=== PATIENT | male | born 1975 | race Caucasian/White ===

== ENCOUNTER 2016-09-23 18:12 | Emergency (ER) | payer SELFPAY ==
[~2016-09-23] VITALS: Ht 193 cm; Wt 83.9 kg
[2016-09-23] MEDS ORDERED: IV NORMAL SALINE 1000ML BAG 1,000 ML IV SCH (19:49)
--- NOTE | 2016-09-23 19:57 | PHYS DOC ---
Past Medical History Past Medical History: No Pertinent History Past Surgical History: No Surgical History Alcohol Use: None Drug Use: None Adult General Chief Complaint Chief Complaint: ABDOMINAL PAIN HPI HPI Patient is a 41 year old male who presents with complaint of abdominal pain. Patient states that he has had symptoms for the past 3 days. The patient states that the pain is near his belly button and radiates along his left lower quadrant. The patient states that yesterday he had a black stool but states that today he had a normal stool. Patient has not had any diarrhea and has not had any fevers. Patient has had nausea and vomiting with symptoms. The patient denies any significant past medical history. 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 Patient also states that he drank alcohol prior to symptom onset. Patient denies any sick contacts. Patient rates his pain currently as 10 out of 10. Patient has not taken any medications to help with symptoms. Review of Systems Review of Systems Constitutional: Denies fever or chills [] Eyes: Denies change in visual acuity, redness, or eye pain [] HENT: Denies nasal congestion or sore throat [] Respiratory: Denies cough or shortness of breath [] Cardiovascular: Denies chest pain or edema [] GI: Abdominal pain, nausea, vomiting [] : Denies dysuria or hematuria [] Musculoskeletal: Denies back pain or joint pain [] Integument: Denies rash or skin lesions [] Neurologic: Denies headache, focal weakness or sensory changes [] Endocrine: Denies polyuria or polydipsia [] Current Medications Current Medications Current Medications Medications (Trade) Dose Ordered Sig/[facility] Start Time Stop Time Status Last Admin Dose Admin Famotidine (Pepcid) 20 mg 1X ONCE 09/23/16 20:00 09/23/16 20:01 DC 09/23/16 20:20 20 MG Fentanyl Citrate 50 mcg 50 mcg PRN Q15MIN PRN 09/23/16 20:00 09/24/16 19:59 09/23/16 21:03 50 MCG Lorazepam (Ativan) 1 mg 1X ONCE 09/23/16 20:00 09/23/16 20:01 DC 09/23/16 20:20 1 MG Ondansetron HCl (Zofran) 4 mg 1X ONCE 09/23/16 20:00 09/23/16 20:01 DC 09/23/16 20:20 4 MG Sodium Chloride (Iv Sodium Chloride 0.9% 1000ml Bag) 1,000 ml @ 1,000 mls/hr Q1H 09/23/16 19:49 09/23/16 20:48 DC 09/23/16 20:19 1,000 MLS/HR Allergies Allergies Allergies Coded Allergies Type Severity Reaction Last Updated Verified No Known Drug Allergies 09/21/15 No Physical Exam Physical Exam Constitutional: Alert, afebrile, appears in mild to moderate discomfort. [] HENT: Normocephalic, atraumatic, bilateral external ears normal, oropharynx moist, no oral exudates, nose normal. [] Eyes: PERRLA, EOMI, conjunctiva normal, no discharge. [] Neck: Normal range of motion, no tenderness, supple, no stridor. [] Cardiovascular: Tachycardia, regular rhythm, no murmur [] Lungs & Thorax: Bilateral breath sounds clear to auscultation [] Abdomen: Bowel sounds normal, soft, periumbilical and left lower quadrant tenderness to palpation, minimal guarding, no rebound tenderness, no masses, no pulsatile masses. [] Skin: Warm, dry, no erythema, no rash. [] Back: No tenderness, no CVA tenderness. [] Extremities: No tenderness, no cyanosis, no clubbing, ROM intact, no edema. [] Neurologic: Alert and oriented X 3, normal motor function, normal sensory function, no focal deficits noted. [] Current Patient Data Vital Signs Vital Signs Date Time Temp Pulse Resp B/P Pulse Ox O2 Delivery O2 Flow Rate FiO2 09/23/16 21:03 24 98 Room Air 09/23/16 21:01 90 137/98 09/23/16 19:20 98.3 98.3 Lab Values Laboratory Tests Test 09/23/16 19:15 09/23/16 19:50 Urine Collection Type Unknown Urine Color Yellow Urine Clarity Clear Urine pH 7.0 Urine Specific [place] 1.015 Urine Protein Negativemg/dL (NEG-TRACE) Urine Glucose (UA) Negativemg/dL (NEG) Urine Ketones (Stick) 15mg/dL (NEG) Urine Blood Negative (NEG) Urine Nitrite Negative (NEG) Urine Bilirubin Negative (NEG) Urine Urobilinogen Dipstick 0.2mg/dL (0.2 mg/dL) Urine Leukocyte Esterase Negative (NEG) Urine RBC 0/HPF (0-2) Urine WBC 5-10/HPF (0-4) Urine Bacteria 0/HPF (0-FEW) Urine Mucus Mod/LPF White Blood Count 10.3x10^3/uL (4.0-11.0) Red Blood Count 5.61x10^6/uL (4.30-5.70) Hemoglobin 17.2g/dL (13.0-17.5) Hematocrit 51.0% (39.0-53.0) Mean Corpuscular Volume 91fL (79-100) Mean Corpuscular Hemoglobin 31pg (25-35) Mean Corpuscular Hemoglobin Concent 34g/dL (31-37) Red Cell Distribution Width 13.8% (11.5-14.5) Platelet Count 215x10^3/uL (140-400) Neutrophils (%) (Auto) 69% (31-73) Lymphocytes (%) (Auto) 18% (24-48) L Monocytes (%) (Auto) 11% (0-9) H Eosinophils (%) (Auto) 1% (0-3) Basophils (%) (Auto) 1% (0-3) Neutrophils # (Auto) 7.2x10^3uL (1.8-7.7) Lymphocytes # (Auto) 1.9x10^3/uL (1.0-4.8) Monocytes # (Auto) 1.2x10^3/uL (0.0-1.1) H Eosinophils # (Auto) 0.1x10^3/uL (0.0-0.7) Basophils # (Auto) 0.1x10^3/uL (0.0-0.2) Sodium Level 141mmol/L (136-145) Potassium Level 4.1mmol/L (3.5-5.1) Chloride Level 101mmol/L (98-107) Carbon Dioxide Level 31mmol/L (21-32) Anion Gap 9 (6-14) Blood Urea Nitrogen 8mg/dL (8-26) Creatinine 0.9mg/dL (0.7-1.3) Estimated GFR (Cockcroft-Gault) 92.5 BUN/Creatinine Ratio 9 (6-20) Glucose Level 129mg/dL (70-99) H Calcium Level 9.5mg/dL (8.5-10.1) Total Bilirubin 0.8mg/dL (0.2-1.0) Aspartate Amino Transferase (AST) 13U/L (15-37) L Alanine Aminotransferase (ALT) 18U/L (16-63) Alkaline Phosphatase 53U/L (46-116) Total Protein 7.7g/dL (6.4-8.2) Albumin 3.9g/dL (3.4-5.0) Albumin/Globulin Ratio 1.0 (1.0-1.7) Lipase 85U/L (73-393) Laboratory Tests 09/23/16 19:50 Laboratory Tests 09/23/16 19:50 EKG EKG Not performed [] Radiology/Procedures Radiology/Procedures 3 view acute abdominal series interpreted by me: No pulmonary infiltrates or effusions, normal cardiac silhouette, nonobstructive bowel gas pattern, no free air under the diaphragm, moderate amount of stool in the descending colon and sigmoid colon [] Course & Med Decision Making Course & Med Decision Making Pertinent Labs and Imaging studies reviewed. (See chart for details) Patient was given IV fluids, Zofran, and fentanyl as well as Ativan. On reevaluation, patient's symptoms have resolved and patient appears well. The patient's abdominal pain does not appear surgical. The patient will continue on dicyclomine and Zofran for treatment of symptoms. Advised follow-up with primary doctor in the next 2 days for reevaluation and return to emergency department for any worsening symptoms. Patient voiced understanding and in agreement with treatment plan. Dragon Disclaimer Dragon Disclaimer This electronic medical record was generated, in whole or in part, using a voice recognition dictation system. Departure Departure Impression: Primary Impression: Abdominal pain Additional Impression: Nausea and vomiting Disposition: 01 HOME, SELF-CARE Condition: IMPROVED Referrals: NO PCP (PCP) Patient Instructions: Abdominal Pain (Nonspecific), Nausea and Vomiting Additional Instructions: Follow-up with your primary doctor in 2-3 days. Return to the emergency department for any worsening symptoms. Scripts Ondansetron (Zofran Odt)4 Mg Tab.rapdis1 Tab SL Q8HRS PRN NAUSEA/VOMITING #15 TAB Prov:GENIE DORADO MD 09/23/16 Dicyclomine Hcl (Bentyl)10 Mg Capsule1 Cap PO TID #30 CAP Ref 0 Prov:GENIE DORADO MD 09/23/16 Problem Qualifiers Primary Impression: Abdominal pain Abdominal location: left lower quadrant Qualified Code: R10.32 - Left lower quadrant pain Additional Impression: Nausea and vomiting Vomiting type: unspecified Vomiting Intractability: non-intractable Qualified Code: R11.2 - Nausea with vomiting, unspecified GENIE DORADO MD Sep 23, 2016 19:57
[2016-09-23 20:00] LABS: BILIRUBIN,URINE NEGATIVE (NEG); GLUCOSE,URINE NEGATIVE (NEG); NITRITE,URINE NEGATIVE (NEG); PROTEIN,URINE NEGATIVE (NEG-TRACE); UROBILINOGEN,URINE 0.2 mg/dL (0.2 mg/dL)
[2016-09-23] MEDS ORDERED: FAMOTIDINE 20 MG/2 ML VIAL IVP ONE (20:00)
[2016-09-23] MEDS ORDERED: LORAZEPAM 2 MG/ML VIAL IV ONE (20:00)
[2016-09-23] MEDS ORDERED: ONDANSETRON PF 4 MG/2 ML VIAL. IV ONE (20:00)
[2016-09-23 20:07] LABS: BASO # 0.1 x10^3/uL (0.0-0.2); BASO % 1 % (0-3); EOS % 1 % (0-3); HEMOGLOBIN 17.2 g/dL (13.0-17.5); LYMPH # 1.9 x10^3/uL (1.0-4.8); LYMPH % 18 % (24-48); MEAN CORPUSCULAR HEMOGLOBIN 31 pg (25-35); MEAN CORPUSCULAR HGB CONC 34 g/dL (31-37); MEAN CORPUSCULAR VOLUME 91 fL (79-100); MONO % 11 % (0-9); NEUT % 69 % (31-73); PLATELET COUNT 215 x10^3/uL (140-400); RED BLOOD COUNT 5.61 x10^6/uL (4.30-5.70); RED CELL DISTRIBUTION WIDTH 13.8 % (11.5-14.5); WHITE BLOOD COUNT 10.3 x10^3/uL (4.0-11.0)
[2016-09-23 20:07] LABS: BACTERIA,URINE 0 /HPF (0-FEW); RBC,URINE 0 /HPF (0-2)
[2016-09-23 20:17] LABS: CALCIUM 9.5 mg/dL (8.5-10.1); CREATININE 0.9 mg/dL (0.7-1.3); GFR 92.5; POTASSIUM 4.1 mmol/L (3.5-5.1)
[2016-09-23] MEDS: FENTANYL PF 100 MCG/2 ML VIAL. IV PRN ×2 (20:19→21:03)
[2016-09-23 20:22] LABS: ALBUMIN 3.9 g/dL (3.4-5.0); TOTAL BILIRUBIN 0.8 mg/dL (0.2-1.0); TOTAL PROTEIN 7.7 g/dL (6.4-8.2)
[2016-09-23] MEDS ORDERED: ONDA4TAB10 SL (21:24)
[2016-09-23] MEDS ORDERED: DICY10CA53 PO (21:24)
[2016-09-23 21:28] VITALS: BP 129/79
--- NOTE | 2016-09-24 06:08 | EKG ---
[facility] [address] [place] [address] Test Date: 2016-09-23 Test Time: 20:28:38 Pat Name: YEMI BRAVO Department: Room: Gender: M Database Marketing Manager: : 1975 Requested By: GENIE DORADO Order Number: [id number] Reading MD: Sanjay Whitten Measurements Intervals [place] Rate: 82 P: 66 IN: 158 QRS: -53 QRSD: 116 T: 52 QT: 372 QTc: 438 Interpretive Statements SINUS RHYTHM LEFT ATRIAL ABNORMALITY ABNORMAL LEFT AXIS DEVIATION LEFT ANTERIOR FASCICULAR BLOCK INCOMPLETE RIGHT BUNDLE BRANCH BLOCK ABNORMAL ECG RI6.01 No previous ECG available for comparison Electronically Signed On 10-10-2016 9:48:05 ELECTROMECHANICAL TECHNICIAN by Sanjay Whitten
--- NOTE | 2016-09-24 08:05 | RAD ---
Acute abdomen series with chest, 09/23/2016: History: Abdominal pain The abdominal gas pattern is unremarkable without evidence of obstruction. No free air seen in the abdomen. There is no evidence of organomegaly or abnormal abdominal calcification. The heart size is normal. No pulmonary infiltrates are seen. There is no evidence of pleural fluid. IMPRESSION: No acute abdominal abnormality is detected.
== END 2016-09-23 21:50 | disposition home or self-care (01) ==
LOC: ER 18:12
DX: R10.32 Left lower quadrant pain (principal); R11.2 Nausea with vomiting, unspecified; F15.90 Other stimulant use, unspecified, uncomplicated
CPT/HCPCS: 36415; 74022; 80053; 81001; 83690; 85027; 87086; 93005; 96361; 96374; 96375; 96376; 99285; J2060; J2405; J3010; J7030; S0028

== ENCOUNTER 2020-07-26 20:32 | Emergency (ER) | payer SELFPAY ==
[~2020-07-26] VITALS: Ht 188 cm; Wt 79.6 kg
[~2020-07-26 20:32] MED LIST: DICY10CA53 PO; ONDA4TAB10 SL
[2020-07-26] MEDS ORDERED: DIPH,PERTUSS(ACELL),TET VAC/PF 0.5 ML SYRINGE. VAX IM ONE (22:00)
[2020-07-26] MEDS ORDERED: CEPHALEXIN 250 MG CAPSULE. PO ONE (22:00)
[2020-07-26] MEDS ORDERED: SMZ/TMP 800/160MG TABLET. PO ONE (22:00)
--- NOTE | 2020-07-26 22:22 | RAD ---
Exam: Right foot 3 views. Right ankle 3 views INDICATION: Pain, rule out osteo- TECHNIQUE: Frontal, lateral oblique views of the right foot and right ankle Comparisons: None FINDINGS: Foot: There is a soft tissue defect noted at the plantar aspect of the metatarsal heads. Bone mineralizatio n is normal. No acute or healed fractures. Joint spaces are well-maintained. Ankle: Bone mineralization is normal. No acute or healed fractures. Soft tissues are unremarkable. Joint spa isaias are well-maintained. IMPRESSION: 1. Soft tissue irregularity along the plantar aspect of the foot at the level of the metatarsal head s. Bone mineralization is normal. 2. No acute osseous abnormality at the ankle Electronically signed by: Trudi Haji MD (07/26/2020 10:19 PM) ISSA
[2020-07-26] MEDS ORDERED: CEPH-264 PO (22:34)
[2020-07-26] MEDS ORDERED: SULF1TAB24 PO (22:34)
--- NOTE | 2020-07-26 22:38 | PHYS DOC ---
Past Medical History Past Medical History: Other Additional Past Medical Histor: "PANCREATIC ISSUES" Past Surgical History: No Surgical History Smoking Status: Current Every Day Smoker Alcohol Use: Heavy Additional Information: "EVERY OTHER DAY" Drug Use: None Social History Narrative: HX METH AND COCAINE USE General Adult EDM: Chief Complaint: FOOT INJURY PAIN HPI: HPI: 47-year-old male who denies any significant past medical history presents the ED with complaints of painful red rash over his right toe that spreading up his foot for the past 2 days. Patient states he was outside in someone's yard when he stepped on a nail. States he took his shoe off and there was no cut to the skin over his foot. Cannot recall his last tetanus. No known history of MRSA. No history of diabetes, cancer or immunocompromise state. Reports wound has been draining yellow pus and his partner has been squeezing it out at home. Review of Systems: Review of Systems: Constitutional: Denies fever or chills. [] Eyes: Denies change in visual acuity. [] HENT: Denies nasal congestion or sore throat. [] Respiratory: Denies cough or shortness of breath. [] Cardiovascular: Denies chest pain or edema. [] GI: Denies abdominal pain, nausea, vomiting, bloody stools or diarrhea. [] : Denies dysuria. [] Musculoskeletal: Denies back pain or joint pain. [] Integument: Denies crepitus or diaphoresis Neurologic: Denies headache, focal weakness or sensory changes. [] Endocrine: Denies polyuria or polydipsia. [] Lymphatic: Denies swollen glands. [] Psychiatric: Denies depression or anxiety. [] Heart Score: Risk Factors: Risk Factors: DM, Current or recent (<one month) smoker, HTN, HLP, family history of CAD, obesity. Risk Scores: Score 0 - 3: 2.5% MACE over next 6 weeks - Discharge Home Score 4 - 6: 20.3% MACE over next 6 weeks - Admit for Clinical Observation Score 7 - 10: 72.7% MACE over next 6 weeks - Early Invasive Strategies Current Medications: Current Medications Medications (Trade) Dose Ordered Sig/June Start Time Stop Time Status Last Admin Dose Admin Cephalexin HCl (Keflex) 500 mg 1X ONCE 07/26/20 22:00 07/26/20 22:01 DC 07/26/20 21:37 500 MG Diphtheria/ Tetanus/Acell Pertussis (ADACEL TDap SYRINGE) 0.5 ml ONCE ONCE 07/26/20 22:00 07/26/20 22:01 DC 07/26/20 21:39 0.5 ML Trimethoprim/ Sulfamethoxazole (Bactrim Ds) 1 tab 1X ONCE 07/26/20 22:00 07/26/20 22:01 DC 07/26/20 21:37 1 TAB Allergies: Allergies: Allergies Coded Allergies Type Severity Reaction Last Updated Verified No Known Drug Allergies 09/21/15 No Physical Exam: PE: Constitutional: Well developed, well nourished, no acute distress, non-toxic appearance, afebrile HENT: Normocephalic, atraumatic, Eyes: EOMI, conjunctiva normal, no discharge. Neck: Normal range of motion, supple, Cardiovascular: S1/2 present, regular rhythm Lungs & Thorax: Speaking in full sentences, bilateral equal chest rise, no tachypnea or increased work of breathing Abdomen: soft, no tenderness, Skin: Warm, dry, Back: No tenderness, no CVA tenderness. [] Extremities: No tenderness, no cyanosis, edematous right dorsum of foot with painful erythema spreading up dorsum of foot from his right pinky toe, right web space of 4th/5th toe with some 1.5x1.5 area of purulence in web space and over pinky toe (location that previously drained), no crepitus, DP and PT pulses intact, no erythema over ankle joint, no joint swelling Neurologic: Alert and oriented X 3, normal motor function, normal sensory function, no focal deficits noted. [] Psychologic: Affect normal, judgement normal, mood normal. [] Current Patient Data: Vital Signs: Vital Signs Date Time Temp Pulse Resp B/P (MAP) Pulse Ox O2 Delivery O2 Flow Rate FiO2 07/26/20 20:53 86 135/85 (102) 99 Room Air 07/26/20 20:46 98.1 16 98.1 EKG: EKG: [] Radiology/Procedures: Radiology/Procedures: IMAGING REPORT Signed PATIENT: YEMI BRAVO ACCOUNT: [id number] : 1975 LOCATION: ER AGE: 45 SEX: M EXAM STATUS: REG ER ORD. PHYSICIAN: NICK MARTINEZ DO REASON: pain, r/o osteo PROCEDURE: FOOT RIGHT 3V Exam: Right foot 3 views. Right ankle 3 views INDICATION: Pain, rule out osteo- TECHNIQUE: Frontal, lateral oblique views of the right foot and right ankle Comparisons: None FINDINGS: Foot: There is a soft tissue defect noted at the plantar aspect of the metatarsal heads. Bone mineralization is normal. No acute or healed fractures. Joint spaces are well-maintained. Ankle: Bone mineralization is normal. No acute or healed fractures. Soft tissues are unremarkable. Joint spaces are well-maintained. IMPRESSION: 1. Soft tissue irregularity along the plantar aspect of the foot at the level of the metatarsal heads. Bone mineralization is normal. 2. No acute osseous abnormality at the ankle Electronically signed by: Trudi Ayala MD (07/26/2020 10:19 PM) [facility] DICTATED and SIGNED BY: TRUDI AYALA MD DATE: 07/26/20 [id number] Indication: Right fourth fifth web space abscess Procedure: The patient was positioned appropriately/supine. Local anesthesia used 1% lidocaine. An incision was then made over the apex of the lesion 1-2cc purulent material was expressed. The patients tetanus status updated as needed. The patient tolerated the procedure well. Complications: none. Antibiotic ointment applied over area sterile dressings. Wound care instructions given to patient and his partner present at bedside. Course & Med Decision Making: Course & Med Decision Making Pertinent Labs and Imaging studies reviewed. (See chart for details) Concern for right foot cellulitis with interweb space abscess that's actively draining. I&D with minimal outpt. Patient afebrile, nontoxic-appearing. No crepitus or severe pain to suggest nec fasc. Tetanus updated. Will discharge home with strict ED return precautions were given for worsening rash, severe pain or fever. Encouraged urgent outpatient follow-up with PMD for wound check in 48 hours, referral to surgery given. Life-threatening processes were considered but are low suspicion at this time, given history, physical exam and ED workup. Pt was educated on all prescription medications and adverse effects. All patient's questions were answered and pt was stable at time of discharge. Life/limb-threatening differential includes but is not limited to, erythema multiforme, mederos-dolores syndrome, toxic epidermal necrolysis, staphylococcal scalded skin syndrome, necrotizing fasciitis/myositis/cellulitis, purpura fulminans, heparin or warfarin induced skin necrosis, angioedema, anaphylaxis drug rash, disseminated intravascular coagulation, disseminated gonococcal disease, vasculitis, septicemia, petechial disorder or coagulopathy, viral exanthem, Kawasaki's disease. I spoken with the patient and her caregivers. I explained the patient's condition, diagnoses and treatment plan based on the information available to me at this time. I have answered the patient and her caregiver's questions and addressed any concerns. The patient and her caregivers have a good understanding of patient's diagnosis, condition and treatment plan as can be expected at this point. Vital signs have been stable. Patient's condition is stable and appropriate for discharge from the emergency department. Patient will pursue further outpatient evaluation with primary care physician or other designated or consulting physician as outlined in the discharge instructions. The patient and/or caregivers are agreeable to this plan of care and follow-up instructions have been explained in detail. The patient and/or caregivers have received these instructions in written form and have expressed an understanding of the discharge instructions. The patient and/or caregivers are aware that any significant change of condition or worsening of symptoms should prompt immediate return to this or the closest emergency department or call to 911. Elizabeth Disclaimer: Elizabeth Disclaimer: This electronic medical record was generated, in whole or in part, using a voice recognition dictation system. Departure Departure Impression: Primary Impression: Cellulitis of foot without toes, right Additional Impressions: Need for Tdap vaccination Abscess of toe, right Disposition: 01 DC HOME SELF CARE/HOMELESS Condition: STABLE Referrals: NO PCP (PCP) FOLLOW UP WITH FAMILY MEDICINE: in 2 days for wound check Family Medicine Address: [address] [place] [address] Patient Instructions: Abscess, Care After, Cellulitis Additional Instructions: FOLLOW UP WITH SURGERY: [facility] General Surgery Address: [address] [place] [address] EMERGENCY DEPARTMENT GENERAL DISCHARGE INSTRUCTIONS Thank you for coming to [facility] Emergency Department (ED) today and trusting us with you care. We trust that you had a positive experience in our Emergency Department. If you wish to speak to the department management, you may call the Director at [phone]. YOUR FOLLOW UP INSTRUCTIONS ARE FOLLOWS: 1. Do you have a private Doctor? If you do not have a private doctor, please ask for a resource list of physicians or clinics that may be able to assist you with follow up care. 2. The Emergency Physicain has interpreted your x-rays. The X-Ray specialist will also review them. If there is a change in the findings, you will be notified in 48 hours when at all possible. 3. A lab test or culture has been done, your results will be reviewed and you will be notified if you need a change in treatment. ADDITIONAL INSTRUCTIONS AND INFORMATION: 1. Your care today has been supervised by a physician who is specially trained in emergency care. Many problems require more than one evaluation for a complete diagnosis and treatment. We recommend that you schedule your follow up appointment as recommended to ensure complete treatment of you illness or injury. If you are unable to obtain follow up care and continue to have a problem, or if your condition worsens, we recommend that you return to the ED. 2. We are not able to safely determine your condition over the phone nor are we able to give sound medical advice over the phone. For these safety reasons, if you call for medical advice we will ask you to come to the ED for further evaluation. 3. If you have any questions regarding these discharge instructions please call the ED at [phone]. SAFETY INFORMATION: In the interest of safety, wellness, and injury prevention; we encourage you to wear your sealbelt, if you smoke; quite smoking, and we encourage family to use a protective helmet for bicycling and other sporting events that present an increased risk for head injury. IF YOUR SYMPTOMS WORSEN OR NEW SYMPTOMS DEVELOP, OR YOU HAVE CONCERNS ABOUT YOUR CONDITION; OR IF YOUR CONDITION WORSENS WHILE YOU ARE WAITING FOR YOUR FOLLOW UP APPOINT MENT; EITHER CONTACT YOUR PRIMARY CARE DOCTOR, THE PHYSICIAN WHOSE NAME AND NUMBER YOU WERE GIVEN, OR RETURN TO THE ED IMMEDIATELY. Scripts Cephalexin (KEFLEX) 500 Mg Capsule 1 CAP PO Q12HR for 14 Days, #28 CAP Prov: NICK MARTINEZ DO 07/26/20 Sulfamethoxazole/Trimethoprim (BACTRIM DS TABLET) 1 Each Tablet 1 TAB PO BID for infection for 14 Days, #28 TAB Prov: NICK MARTINEZ DO 07/26/20 NICK MARTINEZ DO Jul 26, 2020 22:38
[2020-07-26] MEDS ORDERED: fentaNYL PF VIAL 100 MCG/2 ML VIAL IM ONE (23:00)
[2020-07-26] MEDS ORDERED: LIDOCAINE 1% Multi-Dose 20 ML VIAL. INJ ONE (23:00)
[2020-07-26] MEDS ORDERED: NEOMY/BACITR/POLYMYXIN OINT PACKET. TP ONE ×2 (23:05→23:30)
[2020-07-26 23:21] VITALS: BP 148/71
== END 2020-07-26 23:23 | disposition home or self-care (01) ==
LOC: ER 20:32
DX: L02.611 Cutaneous abscess of right foot (principal); L03.115 Cellulitis of right lower limb; F17.200 Nicotine dependence, unspecified, uncomplicated
CPT/HCPCS: 10060; 73610; 73630; 90471; 90715; 96372; 99285; J3010; J3490